=== PATIENT | male | born 1945 | race Two or more races ===

== ENCOUNTER 2020-05-05 14:29 | Outpatient (CLI) | payer MEDICARE, BC | END 2020-05-05 23:59 | disposition home or self-care (01) | LOC: MSC 14:29 | PROVIDERS: ATTEND Internal Medicine | DX: N17.9 Acute kidney failure, unspecified (principal); C34.90 Malignant neoplasm of unspecified part of unspecified bronchus or lung; D64.9 Anemia, unspecified; I73.9 Peripheral vascular disease, unspecified; N40.0 Benign prostatic hyperplasia without lower urinary tract symptoms; E87.5 Hyperkalemia; I10 Essential (primary) hypertension; E78.5 Hyperlipidemia, unspecified; I25.10 Atherosclerotic heart disease of native coronary artery without angina pectoris; Z79.899 Other long term (current) drug therapy ==

== ENCOUNTER 2020-09-27 10:31 | Outpatient (CLI) | payer MEDICARE, BC | END 2020-09-27 23:59 | disposition home or self-care (01) | LOC: MSC 10:31 | PROVIDERS: ATTEND Internal Medicine | DX: I12.9 Hypertensive chronic kidney disease with stage 1 through stage 4 chronic kidney disease, or unspecified chronic kidney disease (principal); N18.9 Chronic kidney disease, unspecified; N17.9 Acute kidney failure, unspecified; Z87.891 Personal history of nicotine dependence; D64.9 Anemia, unspecified; E87.5 Hyperkalemia; C34.90 Malignant neoplasm of unspecified part of unspecified bronchus or lung; I73.9 Peripheral vascular disease, unspecified; N40.0 Benign prostatic hyperplasia without lower urinary tract symptoms; E78.5 Hyperlipidemia, unspecified; I25.10 Atherosclerotic heart disease of native coronary artery without angina pectoris; Z91.81 History of falling; Z98.61 Coronary angioplasty status; Z79.899 Other long term (current) drug therapy ==